=== PATIENT | male | born 1940 | race Caucasian/White ===

== ENCOUNTER 2018-10-20 06:31 | Day surgery (SDC) | payer MEDICARE ==
[~2018-10-20 06:31] MED LIST: BUPIVACAINE HCL 0.75% INJ/PF (7.5 MG/1 ML) 10 ML SDV OD PRN; KETOROLAC TROMETHAMINE 0.45% 4 DROP/0.4 ML DROPERETTE OD PRN; LIDOCAINE 4% INJ/PF (40 MG/ML) 5 ML AMPUL OD PRN
[2018-10-20] MEDS ORDERED: EPINEPHRINE INJ/PF 1 MG/1 ML AMPULE ONE (06:44)
[2018-10-20] MEDS ORDERED: LIDOCAINE 0.5% INJ-PF (5 MG/ML) 50 ML SDV ONE (06:44)
[2018-10-20] MEDS ORDERED: CHONDR SU A NA/HYALUR INTRAOC KIT (SURGICARE) ONE (06:45)
[2018-10-20] MEDS ORDERED: MIDAZOLAM 2 MG/2 ML INJ ONE (06:47)
[2018-10-20] MEDS ORDERED: FENTANYL CITRATE INJ/PF 100 MCG/2 ML AMPUL ONE (06:47)
[2018-10-20] MEDS: TETRACAINE HCL 0.5% OPH SOLN 0.6 ML DROPERETTE OD PRN ×3 (06:55→07:39)
[2018-10-20] MEDS ORDERED: LIDOCAINE 1% INJ-PF (10 MG/ML) 30 ML SDV ONE (06:55)
[2018-10-20] MEDS: TROPICAMIDE 1% OPH SOLN 3 ML OD PRN ×3 (06:56→07:17)
[2018-10-20] MEDS: CYCLOPENTOLATE 0.2%/PHENYLEPHRINE 1% OPH SOLN 2 ML OD PRN ×3 (06:56→07:17)
[2018-10-20] MEDS: BESIFLOXACIN HCL 0.6% OPH SUSP 5 ML BOTTLE OD PRN ×4 (06:57→08:05)
[2018-10-20] MEDS: DORZOLAMIDE HCL 2%/TIMOLOL MALEAT 0.5% OPH SOLN 10 ML OD PRN ×2 (08:05)
--- NOTE | 2018-10-20 13:24 | [facility] OPERATIVE REPORT E ---
[facility] Operative Report NAME: MARTIN JONES AGE: 78Y DATE OF SURGERY: 10/20/2018 ROOM: PREOPERATIVE DIAGNOSIS: Cataract, right eye. POSTOPERATIVE DIAGNOSIS: Cataract, right eye. PROCEDURE PERFORMED: Phacoemulsification with posterior chamber intraocular lens, right eye. SURGEON: Ruth Johnson M.D. ANESTHESIA: Topical with mac. INDICATIONS FOR SURGERY: Difficulty seeing road signs. PROCEDURE: The patient was brought to the Operating Room and placed on the operative table. Following tetracaine drops, topical anesthesia was administered. This consisted of instrument wipe pledgets soaked in a solution of 4% Xylocaine mixed with 0.75% Marcaine in a 1:2 ratio. A 2 x 1 cm pledget was placed in the superior fornix. A 1 x 1 cm pledget was placed in the inferior fornix. The eye was patched shut for 5 minutes. The patch was removed. The eye was sterilely prepped and draped in the usual manner. Lid speculum was placed in the eye. The pledgets were removed. 4-0 black silk sutures were placed around the superior and the inferior rectus muscles to be used as traction. A conjunctival peritomy was made at the 10 o'clock position. Hemostasis was obtained with bipolar cautery. A posterior limbal groove was created using a crescent knife and dissected anteriorly towards the cornea. A sharp point blade was used to create a paracentesis site at the 2 o'clock position. A 2.4 mm keratome was used to enter the anterior chamber through the groove. Viscoelastic was injected into the anterior chamber. An anterior capsulotomy was performed using Utrata forceps in a capsulorrhexis fashion. Hydrodissection and hydrodelineation were performed. Phacoemulsification was performed in [id number]-isl-vkixiir technique. Total phaco time 11 CDE. Following this, the I/A unit was used to remove residual cortex. Viscoelastic was injected into the capsular bag. Intraocular lens model SN60WF, 22.5 diopters, serial number [id number] was placed in the capsular bag. The I/A unit was used to remove residual viscoelastic. The wound was seen to be watertight under high and low pressure, and no sutures were placed. The intraocular lens was well centered. The pressure was adjusted in the eye to normal pressure. The 4-0 black silk sutures and lid speculum were removed. The eye was shielded after Besivance drops were placed. The patient tolerated the procedure well and was sent to the Recovery Room in good condition. DICTATING PHYSICIAN: RUTH JOHNSON M.D. [id number] [id number] PHY#: [id number] ID: [id number] JOB#: [id number] ACCT: [id number] cc:RUTH JOHNSON M.D. >
--- NOTE | 2018-10-20 13:34 | [facility] DISCHARGE SUMMARY E ---
[facility] Discharge Summary NAME: MARTIN JONES AGE: 78Y ADMITTED: 10/20/2018 DISCHARGED: FINAL DIAGNOSIS: Cataract, right eye. PROCEDURE PERFORMED: Phacoemulsification with posterior chamber intraocular lens, right eye. HOSPITAL COURSE: The patient is a 78-year-old gentleman who underwent uneventful cataract extraction with intraocular lens implant, right eye, on 10/20/2018. He will be discharged to home. He is instructed to resume preoperative medications, take Tylenol as needed for discomfort, to keep his eye shielded, to use Predforte, Prolensa, moxifloxacin at 3 p.m. and 8 p.m., to follow up in my office in 1 day. DICTATING PHYSICIAN: DEXTER JOHNSON M.D. 5006M 1302 PHY#: [id number] ID: [id number] JOB#: [id number] ACCT: [id number] cc:DEXTER JOHNSON M.D. >
== END 2018-10-20 08:42 | disposition home or self-care (01) ==
LOC: SC 06:31
PROVIDERS: ATTEND Ophthalmology
DX: H25.13 Age-related nuclear cataract, bilateral (principal); H40.013 Open angle with borderline findings, low risk, bilateral; H43.813 Vitreous degeneration, bilateral; H04.123 Dry eye syndrome of bilateral lacrimal glands; Z79.899 Other long term (current) drug therapy; E78.00 Pure hypercholesterolemia, unspecified; I11.9 Hypertensive heart disease without heart failure; Z79.82 Long term (current) use of aspirin
CPT/HCPCS: 66984; V2632; J2250; J3490 ×4; A9270; J0171; J3010; 142

== ENCOUNTER 2018-11-10 08:58 | Day surgery (SDC) | payer MEDICARE ==
[~2018-11-10 08:58] MED LIST changes: -BUPIVACAINE HCL 0.75% INJ/PF (7.5 MG/1 ML) 10 ML SDV OD PRN; -KETOROLAC TROMETHAMINE 0.45% 4 DROP/0.4 ML DROPERETTE OD PRN; +KETOROLAC TROMETHAMINE 0.45% 4 DROP/0.4 ML DROPERETTE OS PRN; -LIDOCAINE 4% INJ/PF (40 MG/ML) 5 ML AMPUL OD PRN
[2018-11-10] MEDS: CYCLOPENTOLATE 0.2%/PHENYLEPHRINE 1% OPH SOLN 2 ML OS PRN ×3 (10:04→10:28)
[2018-11-10] MEDS: TROPICAMIDE 1% OPH SOLN 3 ML OS PRN ×3 (10:04→10:28)
[2018-11-10] MEDS: BESIFLOXACIN HCL 0.6% OPH SUSP 5 ML BOTTLE OS PRN ×4 (10:05→11:06)
[2018-11-10] MEDS: TETRACAINE HCL 0.5% OPH SOLN 0.6 ML DROPERETTE OS PRN ×4 (10:06→10:32)
[2018-11-10] MEDS: BUPIVACAINE HCL 0.75% INJ/PF (7.5 MG/1 ML) 10 ML SDV OS PRN ×2 (10:34)
[2018-11-10] MEDS: LIDOCAINE 4% INJ/PF (40 MG/ML) 5 ML AMPUL OS PRN ×2 (10:34)
[2018-11-10] MEDS ORDERED: MIDAZOLAM 2 MG/2 ML INJ ONE (10:52)
[2018-11-10] MEDS: LIDOCAINE 1% INJ-PF (10 MG/ML) 30 ML SDV ONE ×2 (10:54)
[2018-11-10] MEDS: EPINEPHRINE INJ/PF 1 MG/1 ML AMPULE ONE ×2 (10:54)
[2018-11-10] MEDS: CHONDR SU A NA/HYALUR INTRAOC KIT (SURGICARE) ONE ×2 (10:54)
[2018-11-10] MEDS: DORZOLAMIDE HCL 2%/TIMOLOL MALEAT 0.5% OPH SOLN 10 ML OS PRN ×2 (11:06)
--- NOTE | 2018-11-10 11:39 | [facility] OPERATIVE REPORT E ---
[facility] Operative Report NAME: MARTIN JONES AGE: 78Y DATE OF SURGERY: 11/10/2018 ROOM: PREOPERATIVE DIAGNOSIS: CATARACT, LEFT EYE. POSTOPERATIVE DIAGNOSIS: CATARACT, LEFTE EYE. PROCEDURE PERFORMED: PHACOEMULSIFICATION WITH POSTERIOR CHAMBER INTRAOCULAR LENS, LEFT EYE. SURGEON: DEXTER JOHNSON MD ANESTHESIA: TOPICAL WITH MAC. INDICATIONS FOR SURGERY: Difficulty reading small print. PROCEDURE: The patient was brought to the Operating Room and placed on the operative table. Following tetracaine drops, topical anesthesia was administered. This consisted of instrument wipe pledgets soaked in a solution of 4% Xylocaine mixed with 0.75% Marcaine in a 1:2 ratio. A 2 x 1 cm pledget was placed in the superior fornix. A 1 x 1 cm pledget was placed in the inferior fornix. The eye was patched shut for 5 minutes. The patch was removed. The eye was sterilely prepped and draped in the usual manner. Lid speculum was placed in the eye. The pledgets were removed. 4-0 black silk sutures were placed around the superior and the inferior rectus muscles to be used as traction. A conjunctival peritomy was made at the 10 o'clock position. Hemostasis was obtained with bipolar cautery. A posterior limbal groove was created using a crescent knife and dissected anteriorly towards the cornea. A sharp point blade was used to create a paracentesis site at the 2 o'clock position. A 2.4 mm keratome was used to enter the anterior chamber through the groove. Viscoelastic was injected into the anterior chamber. An anterior capsulotomy was performed using Utrata forceps in a capsulorrhexis fashion. Hydrodissection and hydrodelineation were performed. Phacoemulsification was performed in yyrxja-crb-ldrzvdg technique. A total of 13.21 CDE phaco time was used. Following this, the I/A unit was used to remove residual cortex. Viscoelastic was injected into the capsular bag. Intraocular lens model SN60WF, 22.0 diopters, serial number [id number] was placed in the capsular bag. The I/A unit was used to remove residual viscoelastic. The wound was seen to be watertight under high and low pressure, and no sutures were placed. The intraocular lens was well centered. The pressure was adjusted in the eye to normal pressure. The 4-0 black silk sutures and lid speculum were removed. The eye was shielded after Besivance drops were placed. The patient tolerated the procedure well and was sent to the Recovery Room in good condition. A drop of Cosopt was placed in the eye at the end of surgery. DICTATING PHYSICIAN: DEXTER JOHNSON M.D. DICTATING PHYSICIAN: DEXTER JOHNSON M.D. 5133M 1133 PHY#: [id number] ID: [id number] JOB#: [id number] ACCT: [id number] cc:DEXTER JOHNSON M.D. >
--- NOTE | 2018-11-10 11:40 | [facility] DISCHARGE SUMMARY E ---
[facility] Discharge Summary NAME: MARTIN JONES AGE: 78Y ADMITTED: 11/10/2018 DISCHARGED: 11/10/2018 FINAL DIAGNOSIS: CATARACT, LEFT EYE HOSPITAL COURSE: The patient is a 78-year-old gentleman who underwent uneventful cataract extraction with intraocular lens implant, left eye on 11/10/18. He will be discharged to home. He is instructed to resume preoperative medications, take Tylenol as needed for discomfort, to keep his eye shielded, to use Predforte, PROLENSA, and Vigamox at 3 p.m. and 8 p.m., and to follow up in my office in 1 day. DICTATING PHYSICIAN: DEXTER JOHNSON M.D. 5133M 1136 PHY#: [id number] ID: [id number] JOB#: [id number] ACCT: [id number] cc:DEXTER JOHNSON M.D. >
== END 2018-11-10 12:00 | disposition home or self-care (01) ==
LOC: SC 08:58
PROVIDERS: ATTEND Ophthalmology
DX: H25.12 Age-related nuclear cataract, left eye (principal); Z96.1 Presence of intraocular lens; I25.2 Old myocardial infarction; I10 Essential (primary) hypertension; Z79.899 Other long term (current) drug therapy; Z79.82 Long term (current) use of aspirin
CPT/HCPCS: 66984; V2632; J2250; J3490 ×4; A9270; J0171; 142